=== PATIENT | female | born 1995 | race Two or more races ===

== ENCOUNTER 2020-05-29 16:02 | Emergency (ER) | payer MEDICAID ==
[~2020-05-29] VITALS: Ht 160 cm; Wt 52.6 kg
[2020-05-29 16:04] VITALS: BP 119/72
[2020-05-29] MEDS ORDERED: cefTRIAXone SOD 1,000 MG VL IM ONE (17:15)
== END 2020-05-29 17:24 | disposition home or self-care (01) ==
LOC: ER 16:02
DX: J03.80 Acute tonsillitis due to other specified organisms (principal)
CPT/HCPCS: 96372; 99283; J0696